=== PATIENT | male | born 1955 | race American Indian/Alaskan Native ===

== ENCOUNTER 2022-05-30 15:50 | Inpatient (IN) | payer MEDICARE, OTHER ==
--- NOTE | 2022-05-30 16:41 | Consultation ---
History of Present Illness Consult date: 05/30/22 History of present illness: [facility] Consult Note # Demographics Consult Type: Acute Stroke Level 1 (0-4.5 hrs) Patient Location: Emergency Room First Name: eron Last Name: adin Date of : 1955 Age: 66 Gender: Male Facility: [facility] Time of Initial Page ( Time): 05/30/2022, 16:31 Time of Return Call ( Time): 05/30/2022, 16:31 # HPI Chief Complaint: dizziness weakness (focal) History: Per ER staff, patient developed dizziness & right-sided weakness while sitting in recliner. Symptoms resolved after 2-3 minutes. Last Known Normal: I have collected independent history specific to time last normal or last known well. We have collaborated with the provider and at this time, we have the most current timeline with the information that is available. 1300 Duration: resolved minutes Possible Thrombolytic candidate: not on warfarin or NOACs no intracranial hemorrhage history no recent major surgery # Scores Time of exam and NIHSS ( Time): 05/30/2022, 16:34 Level of Consciousness 1a: [0] = Alert; keenly responsive LOC Questions 1b: [0] = Answers both questions correctly LOC Commands 1c: [0] = Performs both tasks correctly Best Gaze 2: [0] = Normal Visual 3: [0] = No visual loss Facial Palsy 4: [0] = Normal symmetrical movements Motor Arm Left 5a: [0] = No drift Motor Arm Right 5b: [0] = No drift Motor Leg Left 6a: [0] = No drift Motor Leg Right 6b: [0] = No drift Limb Ataxia 7: [0] = Absent Sensory 8: [0] = Normal Best Language 9: [0] = No aphasia Dysarthria 10: [0] = Normal Extinction and Inattention 11: [0] = No abnormality NIHSS Total: 0 # Exam SBP: 194 DBP: 99 Mental Status: awake alert and oriented x 3 follows commands Language: normal speech # ROS Pulmonary: no shortness of breath Cardiovascular: no chest pain # PMH-FH-SH Social History: non-smoker Medications: No antithrombotics or anticoagulants reported denies Allergies: NKDA # Data Glucose: 120 # Assessment Impression: Transient Ischemic Attack # Plan Thrombolytic/Intervention: NOT IV Thrombolysis or IA Intervention candidate Thrombolytic Exclusion (< 3 hour window): NIHSS = 0 Target Blood Pressure: SBP < 220 Labs: CBC comprehensive metabolic panel ESR hemoglobin A1c lipid panel troponin TSH urine drug screen ua Imaging: (urgency: STAT): CT Head without contrast CT Angiogram Head and CT Angiogram Neck AND call back with results if abnormal Imaging: (urgency: routine): MRI Brain without contrast Diagnostic Test: echo without bubble study Therapy/Evaluation: NPO until swallow evaluation PT/OT evaluation Medication: aspirin 81 mg PLUS clopidogrel (Plavix) 75 mg for 21 days, then monotherapy therafter start statin with goal of LDL < 70 DVT Prophylaxis: SCD chemical DVT prophylaxis Other: If patient has any neurological deterioration please call me back immediately permissive hypertension telemetry monitoring I have discussed my recommendations with the referring provider Disposition: admit # Logistics Telemedicine: Interactive 2 way audio and visual telecommunication technology was utilized during this visit # Demographics First Name: eron Last Name: adin Facility: [facility] Medications and Allergies Allergies Allergy/AdvReac Type Severity Reaction Status Date / Time No Known Allergies Allergy Verified 05/30/22 16:24 Physical Examination - Vital Signs Vital Signs: Vital Signs Pulse Resp BP Pulse Ox 70 19 172/74 99 05/30/22 16:20 05/30/22 16:20 05/30/22 16:20 05/30/22 16:20
--- NOTE | 2022-05-30 17:00 | Cat Scan Report ---
CT BRAIN: 05/30/2022 INDICATION / CLINICAL INFORMATION: Stroke symptoms. COMPARISON: None available. FINDINGS: BRAIN/INTRACRANIAL STRUCTURES: Unenhanced CT images of the brain demonstrate no evidence of acute abn ormality. Ventricles and sulci are prominent in size, consistent with prominent diffuse cerebral atrophy. Extensive chronic white matter hypoattenuation is present throughout the cerebral hemispheric white m atter, consistent with prominent chronic small vessel ischemic change. There is no evidence of acute large vessel territory ischemic injury, hemorrhage, or mass. There are no abnormal extra-axial fluid collections. EXTRACRANIAL STRUCTURES: Unremarkable. IMPRESSION: Extensive chronic changes. No CT evidence of acute abnormality. No evidence of hemorrhage. All CT scans at this location are performed using dose reduction to ALARA by means of automated expos ure control. Signer Name: Abhilash López MD Signed: 05/30/2022 4:56 PM Workstation Name: [id number]
[2022-05-30] MEDS ORDERED: ASPIRIN 325 MG TAB PO ONE (17:13)
--- NOTE | 2022-05-30 17:17 | Emergency Department Report ---
HPI - General Chief Complaint: High BP Time Seen by Provider: 05/30/22 16:36 - HPI HPI: Room 4 The patient is a 58-year-old male present with a chief complaint of right-sided weakness. The patient states that 1330 this afternoon he was sitting in his chair watching television when he noticed he had right upper extremity weakness and numbness. Patient states he tried to communicate with his but had difficulty enunciating/getting the words out. Patient states his symptoms lasted for approximately 2 to 3 minutes before resolving. Patient had his take him to a facility he thought was a stroke center but found out it was urgent care facility so when they were returning home they decided to stop at a fire department. The patient had his blood pressure checked at that time and was found to be hypertensive at 220/110 and was subsequently brought to the ED. Patient currently denies complaints. Patient denies history of hypertension ED Past Medical Hx - Past Medical History Previous Medical History?: No - Surgical History Past Surgical History?: No Additional Surgical History: Right wrist ganglion cyst removal - Family History Family history: no significant - Social History Smoking Status: Former Smoker (None x40 years) Substance Use Type: None (Denies illicit drug use), Alcohol (Glass of wine daily) ED Review of Systems ROS: Stated complaint: POSSIBLE TIA/WEAKNESS/DIZZY Other details as noted in HPI Constitutional: no symptoms reported Eyes: denies: eye pain ENT: denies: throat pain Respiratory: no symptoms reported Cardiovascular: denies: chest pain Endocrine: no symptoms reported Gastrointestinal: denies: abdominal pain Genitourinary: denies: dysuria Musculoskeletal: denies: back pain Neurological: weakness, paresthesias, other (Dysarthria) Physical Exam - Physical Exam Vital Signs: Vital Signs 05/30/22 16:20 Pulse Rate 70 Respiratory 19 Rate Blood Pressure 172/74 [Right] O2 Sat by Pulse 99 Oximetry Physical Exam: GENERAL: The patient is well-developed well-nourished male lying on stretcher not appearing to be in acute distress. [] HEENT: Normocephalic. Atraumatic. Extraocular motions are intact. Patient has moist mucous membranes. NECK: Supple. Trachea midline CHEST/LUNGS: Clear to auscultation. There is no respiratory distress noted. HEART/CARDIOVASCULAR: Regular. There is no tachycardia. There is no gallop rub or murmur. ABDOMEN: Abdomen is soft, nontender. Patient has normal bowel sounds. There is no abdominal distention. SKIN: There is no rash. There is no edema. There is no diaphoresis. NEURO: The patient is awake, alert, and oriented. The patient is cooperative. The patient has no focal neurologic deficits. The patient has normal speech. Cranial nerves II through XII grossly intact. GCS 15. Patient is able to hold either upper extremity at 45 degree angle for 10-second count without drift. Patient is able to hold either lower extremity at 30 degree angle for 5-second count without drift. Normal sensation to light touch equal bilaterally throughout. NIHSS= 0 MUSCULOSKELETAL: There is no evidence of acute injury. ED Course Vital Signs 05/30/22 16:20 Pulse Rate 70 Respiratory 19 Rate Blood Pressure 172/74 [Right] O2 Sat by Pulse 99 Oximetry ED Medical Decision Making - Lab Data Result diagrams: 05/30/22 17:38 05/30/22 17:38 Laboratory Tests 05/30/22 05/30/22 05/30/22 17:38 17:38 17:38 WBC 4.8 RBC 4.91 Hgb 14.7 Hct 43.0 MCV 88 MCH 30 MCHC 34 RDW 13.8 Plt Count 167 Lymph % (Auto) 40.8 H Mcpherson % (Auto) 10.3 H Eos % (Auto) 2.8 Baso % (Auto) 1.0 Lymph # (Auto) 2.0 Mcpherson # (Auto) 0.5 Eos # (Auto) 0.1 Baso # (Auto) 0.0 Seg Neutrophils % 45.1 Seg Neutrophils # 2.2 PT 21.5 H INR 1.64 H Thrombin Time 39.5 H Sodium 135 L Potassium 4.4 Chloride 101.2 Carbon Dioxide 24 Anion Gap 14 BUN 8 L Creatinine 0.9 Estimated GFR > 60 BUN/Creatinine Ratio 9 Glucose 83 Calcium 9.2 AST 18 ALT 20 Alkaline Phosphatase 77 Total Creatine Kinase 107 CK-MB (CK-2) 1.4 CK-MB (CK-2) Rel Index 1.3 Troponin T < 0.010 Total Protein 6.4 Albumin 4.4 Albumin/Globulin Ratio 2.2 - Radiology Data Radiology results: report reviewed (CT head, CTA brain, CTA neck), image reviewed (CT head, CT brain, CTA neck) [facility] [address] [place] [address] Cat Scan Report Signed Patient: SIA GAXIOLA MR#: [id number] : 1955 Acct:[id number] Age/Sex: 66 / M ADM Date: 05/30/22 Loc: ED Attending Dr: Ordering Physician: ANITA NATARAJAN MD Date of Service: 05/30/22 Procedure(s): CT angio head Accession Number(s): [id number] cc: ANITA NATARAJAN MD CTA head with intravenous contrast CLINICAL HISTORY: stroke sx 100ml of [id number] TECHNIQUE: 0.625 mm thick contiguous axial scans were obtained from the skull base to the skull vertex during rapid bolus administration of intravenous contrast material. Multiplanar reconstructions were produced in the coronal and sagittal planes. In addition 3 plane MIP instructions were produced and reviewed for this report. The axial source images and reconstructed images were reviewed for this report. CONTRAST DOSE REPORT: Omnipaque 350: 100 ml administered intravenously. All CT scans at this location are performed using CT dose reduction for ALARA by means of automated exposure control. FINDINGS: Internal carotid arteries dolichoectasia of the supraclinoid segment of the i nternal carotid arteries is noted, right more than left.:Radha, cavernous, ophthalmic and clinoid segments of the ICAs have an otherwise unremarkable appearance. Middle cerebral arteries:Normal and symmetrical M1 segments of the middle cerebral arteries are demonstrated. No abnormalities are seen on evaluation of the insular or opercular branches. Anterior cerebral arteries:Bilaterally symmetrical A1 segments are demonstrated. No abnormalities are seen along the course of the A2 segments or their visualized pericallosal branches. A small anterior communicating artery is demonstrated. Vertebral arteries:Bilaterally symmetrical vertebral arteries are demonstrated. Both vertebral arteries contribute to the basilar artery origin. Basilar artery:Basilar artery has an unremarkable appearance. Posterior cerebral arteries:Bilaterally symmetrical posterior cerebral arteries are identified. small right-sided and large left-sided posterior communicating arteries are demonstrated. [place] of [place]:Not intact. see above. Dural sinuses: Dural sinuses are not well evaluated on this study which was obtained during the early and mid arterial phase. IMPRESSION: 1. 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 2. No indication of intercranial stenosis or large vessel occlusion. Signer Name: Juice Bella MD Signed: 05/30/2022 5:41 PM Workstation Name: [id number] Transcribed By: Dictated By: Juice Bella MD Electronically Authenticated By: Juice Bella MD Signed Date/Time: 05/30/221740 DD/ 35 TD/TT: [facility] [address] [id number] Cat Scan Report Signed Patient: SIA GAXIOLA MR#: [id number] : 1955 Acct:[id number] Age/Sex: 66 / M ADM Date: 05/30/22 Loc: ED Attending Dr: Ordering Physician: ANITA NATARAJAN MD Date of Service: 05/30/22 Procedure(s): CT angio neck Accession Number(s): [id number] cc: ANITA NATARAJAN MD CTA neck without and with intravenous contrast material CLINICAL HISTORY: stroke sx 100ml of [id number] TECHNIQUE: Following acquisition of a timing bolus 0.625 mm thick contiguous axial scans were obtained from aortic arch to the skull base during rapid bolus intravenous contrast infusion. In addition to evaluation of axial source images multiplanar reconstructions were produced and reviewed for this report. 3 plane MIP reconstructions were produced and reviewed. Contrast dose report: Omnipaque 350: 100 ml, administered intravenously All CT examinations performed at this facility utilize modulated dose reduction, iterative reconstruction or weight-based dosing, as appropriate, to obtain a radiation dose which is as low as can reasonably be achieved. FINDINGS: Limitations: Timing of the contrast bolus relative to scan acquisition is suboptimal. This altered and suboptimal evaluation of the abdominal aorta and origins of the great vessels as well as of the proximal common carotid arteries and vertebral arteries. Thoracic aorta: Evaluation is limited as noted above..The origins of the great vessels are not well evaluated on this study Right carotid artery: Mid and distal common carotid artery have an unremarkable appearance. Calcified atherosclerotic plaque is present on the posterior aspect of the carotid bulb. There is no indication of stenosis. Cervical segments of the R ICA have a normal appearance. Left carotid artery: Mid and distal left common carotid artery have an unremarkable appearance. There is no indication of atherosclerotic disease carotid bulb or elsewhere. Cervical segments of the LICA have a normal appearance. Posterior circulation: The V1 segments of the vertebral arteries are poorly demonstrated due to problems with timing of the contrast bolus. Mid and distal V2 segments, V3 segments and V4 segments of the vertebral arteries have an unremarkable appearance. Both vertebral arteries contribute to the basilar artery origin. The degree of stenosis, if any, is determined utilizing NASCET like criteria. In this case there is no indication of hemodynamically significant stenosis at the carotid b ifurcations or elsewhere. Evaluation of the nonvascular soft tissue structures reveal no abnormality. There is no indication of cervical lymphadenopathy. No abnormalities are seen along the course of the airway. Visualized portions of the parotid glands and the submandibular salivary glands have a normal appearance. Thyroid gland has a normal appearance. Evaluation of the lung apices reveals no evidence of lung nodule or infiltrate. Widespread cervical spondylosis is noted. Loss of disc height and anterior and posterior osteophyte formation are present at multiple levels. Widespread uncovertebral arthropathy is observed. Multifocal neuroforaminal stenosis is evident. Central spinal canal remains adequate in size. IMPRESSION: 1. Limited evaluation of the thoracic aorta and origins of the great vessels. 2. No indication of hemodynamically significant stenosis at the carotid bifurcations or elsewhere. Signer Name: Juice Bella MD Signed: 05/30/2022 5:36 PM Workstation Name: [id number] Transcribed By: Dictated By: Juice Bella MD Electronically Authenticated By: Juice Bella MD Signed Date/Time: 05/30/221735 DD/ 172 TD/TT: [address] [address] Cat Scan Report Signed Patient: SIA GAXIOLA MR#: [id number] : 1955 A cct:[id number] Age/Sex: 66 / M ADM Date: 05/30/22 Loc: ED Attending Dr: Ordering Physician: ANITA NATARAJAN MD Date of Service: 05/30/22 Procedure(s): CT head/brain wo con Accession Number(s): [id number] cc: ANITA NATARAJAN MD CT BRAIN: 05/30/2022 INDICATION / CLINICAL INFORMATION: Stroke symptoms. COMPARISON: None available. FINDINGS: BRAIN/INTRACRANIAL STRUCTURES: Unenhanced CT images of the brain demonstrate no evidence of acute abnormality. Ventricles and sulci are prominent in size, consistent with prominent diffuse cerebral atrophy. Extensive chronic white matter hypoattenuation is present throughout the cerebral hemispheric white matter, consistent with prominent chronic small vessel ischemic change. There is no evidence of acute large vessel territory ischemic injury, hemorrhage, or mass. There are no abnormal extra-axial fluid collections. EXTRACRANIAL STRUCTURES: Unremarkable. IMPRESSION: Extensive chronic changes. No CT evidence of acute abnormality. No evidence of hemorrhage. All CT scans at this location are performed using dose reduction to ALARA by means of automated exposure control. Signer Name: Abhilash López MD Signed: 05/30/2022 4:56 PM Workstation Name: [id number] Transcribed By: SHARATH Dictated By: Abhilash López MD Electronically Authenticated By: Abhilash López MD Signed Date/Time: 05/30/221655 DD/ 52 TD/TT: - Differential Diagnosis TIA, CVA Critical care attestation.: If time is entered above; I have spent that time in minutes in the direct care of this critically ill patient, excluding procedure time. ED Disposition Clinical Impression: TIA (transient ischemic attack) Disposition: ADMITTED INPATIENT Is pt being admited?: Yes Does the pt Need Aspirin: Yes Condition: Fair Time of Disposition: 19:00 (Care transferred to hospitalist (Dr. Bernard))
--- NOTE | 2022-05-30 17:40 | Cat Scan Report ---
CTA neck without and with intravenous contrast material CLINICAL HISTORY: stroke sx 100ml of [id number] TECHNIQUE: Following acquisition of a timing bolus 0.625 mm thick contiguous axial scans were obtained from aort ic arch to the skull base during rapid bolus intravenous contrast infusion. In addition to evaluation of axial source images multiplanar reconstructions were produced and reviewed for this report. 3 ishmael ne MIP reconstructions were produced and reviewed. Contrast dose report: Omnipaque 350: 100 ml, administered intravenously All CT examinations performed at this facility utilize modulated dose reduction, iterative reconstruc tion or weight-based dosing, as appropriate, to obtain a radiation dose which is as low as can reason ably be achieved. FINDINGS: Limitations: Timing of the contrast bolus relative to scan acquisition is suboptimal. This altered an d suboptimal evaluation of the abdominal aorta and origins of the great vessels as well as of the pro ximal common carotid arteries and vertebral arteries. Thoracic aorta: Evaluation is limited as noted above..The origins of the great vessels are not well e valuated on this study Right carotid artery: Mid and distal common carotid artery have an unremarkable appearance. Calcified atherosclerotic plaque is present on the posterior aspect of the carotid bulb. There is no indicatio n of stenosis. Cervical segments of the R ICA have a normal appearance. Left carotid artery: Mid and distal left common carotid artery have an unremarkable appearance. There is no indication of atherosclerotic disease carotid bulb or elsewhere. Cervical segments of the LICA have a normal appearance. Posterior circulation: The V1 segments of the vertebral arteries are poorly demonstrated due to probl ems with timing of the contrast bolus. Mid and distal V2 segments, V3 segments and V4 segments of the vertebral arteries have an unremarkable appearance. Both vertebral arteries contribute to the basila r artery origin. The degree of stenosis, if any, is determined utilizing NASCET like criteria. In this case there is no indication of hemodynamically significant stenosis at the carotid bifurcations or elsewhere. Evaluation of the nonvascular soft tissue structures reveal no abnormality. There is no indication of cervical lymphadenopathy. No abnormalities are seen along the course of the airway. Visualized porti ons of the parotid glands and the submandibular salivary glands have a normal appearance. Thyroid gla nd has a normal appearance. Evaluation of the lung apices reveals no evidence of lung nodule or infil trate. Widespread cervical spondylosis is noted. Loss of disc height and anterior and posterior osteophyte f ormation are present at multiple levels. Widespread uncovertebral arthropathy is observed. Multifocal neuroforaminal stenosis is evident. Central spinal canal remains adequate in size. IMPRESSION: 1. Limited evaluation of the thoracic aorta and origins of the great vessels. 2. No indication of hemodynamically significant stenosis at the carotid bifurcations or elsewhere. Signer Name: Juice Bella MD Signed: 05/30/2022 5:36 PM Workstation Name: [email or web address]
--- NOTE | 2022-05-30 17:45 | Cat Scan Report ---
CTA head with intravenous contrast CLINICAL HISTORY: stroke sx 100ml of [id number] TECHNIQUE: 0.625 mm thick contiguous axial scans were obtained from the skull base to the skull vertex during r apid bolus administration of intravenous contrast material. Multiplanar reconstructions were produced in the coronal and sagittal planes. In addition 3 plane MIP instructions were produced and reviewed for this report. The axial source images and reconstructed images were reviewed for this report. CONTRAST DOSE REPORT: Omnipaque 350: 100 ml administered intravenously. All CT scans at this location are performed using CT dose reduction for ALARA by means of automated e xposure control. FINDINGS: Internal carotid arteries dolichoectasia of the supraclinoid segment of the internal carotid arteries is noted, right more than left.:Radha, cavernous, ophthalmic and clinoid segments of the ICAs have an otherwise unremarkable appearance. Middle cerebral arteries:Normal and symmetrical M1 segments of the middle cerebral arteries are demon strated. No abnormalities are seen on evaluation of the insular or opercular branches. Anterior cerebral arteries:Bilaterally symmetrical A1 segments are demonstrated. No abnormalities are seen along the course of the A2 segments or their visualized pericallosal branches. A small anterior communicating artery is demonstrated. Vertebral arteries:Bilaterally symmetrical vertebral arteries are demonstrated. Both vertebral arteri es contribute to the basilar artery origin. Basilar artery:Basilar artery has an unremarkable appearance. Posterior cerebral arteries:Bilaterally symmetrical posterior cerebral arteries are identified. smal l right-sided and large left-sided posterior communicating arteries are demonstrated. [place] of [place]:Not intact. see above. Dural sinuses: Dural sinuses are not well evaluated on this study which was obtained during the early and mid arterial phase. IMPRESSION: 1. 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 2. No indication of intercranial stenosis or large vessel occlusion. Signer Name: Juice Bella MD Signed: 05/30/2022 5:41 PM Workstation Name: [id number]
[2022-05-30 18:01] LABS: Eosinophils # (Auto) 0.1 K/mm3 (0.0-0.4); Eosinophils % (Auto) 2.8 % (0.0-4.3); Hemoglobin 14.7 gm/dl (11.8-15.2); Lymphocytes % (Auto) 40.8 % (13.4-35.0); Mean Corpuscular HGB Conc 34 % (32-34); Mean Corpuscular Volume 88 fl (84-94); Monocytes # (Auto) 0.5 K/mm3 (0.0-0.8); Monocytes % (Auto) 10.3 % (0.0-7.3); Platelet Count 167 K/mm3 (140-440); Red Blood Count 4.91 M/mm3 (3.65-5.03); Red Cell Distribution Width 13.8 % (13.2-15.2)
[2022-05-30 18:18] LABS: INR 1.64 (0.87-1.13)
[2022-05-30 18:21] LABS: Creatine Kinase MB 1.4 ng/mL (0.0-4.0)
[2022-05-30 18:22] LABS: Alanine Aminotransferase 20 units/L (7-56); Albumin 4.4 g/dL (3.9-5); BUN/Creatinine Ratio 9; Blood Urea Nitrogen 8 mg/dL (9-20); Calcium 9.2 mg/dL (8.4-10.2); Hemolysis Index 18; Thrombin Time 39.5 Sec. (15.1-19.6)
[2022-05-30] MEDS ORDERED: ACETAMINOPHEN 325 MG TAB PO PRN ×2 (19:03→22:40)
[2022-05-30] MEDS ORDERED: MORPHINE 2 MG/1 ML INJ IV PRN ×2 (19:03→22:40)
[2022-05-30] MEDS ORDERED: ONDANSETRON 4 MG/2 ML INJ IV PRN ×2 (19:03→22:40)
[2022-05-30 19:15] LABS: Partial Thromboplastin Time 98.6 Sec. (24.2-36.6)
[2022-05-30 21:29] LABS: Color,Urine Colorless (Yellow)
[2022-05-30 21:51] LABS: Mucus,Urine FEW /HPF
[2022-05-30] MEDS ORDERED: ALBUTEROL 2.5 MG/3 ML NEBU IH PRN (22:40)
[2022-05-30] MEDS ORDERED: MORPHINE 4 MG/1 ML INJ IV PRN (22:40)
--- NOTE | 2022-05-30 22:49 | History and Physical Report ---
History of Present Illness Date of examination: 05/30/22 Date of admission: 05/30/22 19:03 Chief complaint: Right-sided weakness High blood pressure History of present illness: 58-year-old male present with a chief complaint of right-sided weakness. The patient states that 1330 this afternoon he was sitting in his chair watching television when he noticed he had right upper extremity weakness and numbness. Patient states he tried to communicate with his but had difficulty enunciating/getting the words out. Patient states his symptoms lasted for approximately 2 to 3 minutes before resolving. Patient had his take him to a facility he thought was a stroke center but found out it was urgent care facility so when they were returning home they decided to stop at a fire department. The patient had his blood pressure checked at that time and was f ound to be hypertensive at 220/110 and was subsequently brought to the ED. Patient currently denies complaints. Patient denies history of hypertension In the emergency room initial CT scan of the head shows extensive chronic changes. No CT evidence of acute abnormality. No evidence of hemorrhage. Subsequently patient was seen and evaluated by telemetry neurology's were going to admit the patient we will put the patient on TIA pathway Past History Past Medical History: hypertension Past Surgical History: Other (Right wrist ganglion cyst removal) Social history: smoking, alcohol abuse Family history: hypertension Medications and Allergies Allergies Allergy/AdvReac Type Severity Reaction Status Date / Time No Known Allergies Allergy Verified 05/30/22 16:24 Active Meds: Active Medications Acetaminophen (Acetaminophen 325 Mg Tab) 650 mg PO Q4H PRN PRN Reason: Pain MILD(1-3)/Fever >100.5/PENN Acetaminophen (Acetaminophen 325 Mg Tab) 650 mg PO Q4H PRN PRN Reason: Pain MILD(1-3)/Fever >100.5/PENN Albuterol (Albuterol 2.5 Mg/3 Ml Nebu) 2.5 mg IH Q4HRT PRN PRN Reason: Shortness Of Breath Albuterol/Ipratropium (Ipratropium/Albuterol Sulfate 3 Ml Ampul.Neb) 1 ampul IH Q6HRT BRENDA Famotidine (Famotidine 20 Mg Tab) 20 mg PO BID BRENDA Morphine Sulfate (Morphine 2 Mg/1 Ml Inj) 2 mg IV Q4H PRN PRN Reason: Pain, Moderate (4-6) Ondansetron HCl (Ondansetron 4 Mg/2 Ml Inj) 4 mg IV Q8H PRN PRN Reason: Nausea And Vomiting Ondansetron HCl (Ondansetron 4 Mg/2 Ml Inj) 4 mg IV Q8H PRN PRN Reason: Nausea And Vomiting Sodium Chloride (Sodium Chloride 0.9% 10 Ml Flush Syringe) 10 ml IV BID BRENDA Stop: 06/09/22 23:59 Sodium Chloride (Sodium Chloride 0.9% 10 Ml Flush Syringe) 10 ml IV PRN PRN PRN Reason: LINE FLUSH Sodium Chloride (Sodium Chloride 0.9% 10 Ml Flush Syringe) 10 ml IV BID BRENDA Sodium Chloride (Sodium Chloride 0.9% 10 Ml Flush Syringe) 10 ml IV PRN PRN PRN Reason: LINE FLUSH Sodium Chloride (Sodium Chloride 0.9% 10 Ml Flush Syringe) 10 ml INJ PRN PRN PRN Reason: LINE FLUSH Review of Systems All systems: negative Constitutional: other (Right upper extremity weakness and numbness.difficulty enunciating/getting the words out. ) Exam - Constitutional Vitals: Temp Pulse Resp BP Pulse Ox 71 15 171/95 95 05/30/22 19:16 05/30/22 19:16 05/30/22 19:16 05/30/22 22:06 General appearance: Present: no acute distress, well-nourished - EENT Eyes: Present: PERRL ENT: hearing intact, clear oral mucosa - Neck Neck: Present: supple, normal ROM - Respiratory Respiratory effort: normal Respiratory: bilateral: CTA - Cardiovascular Heart Sounds: Present: S1 & S2. Absent: rub, click - Extremities Extremities: pulses symmetrical, No edema Peripheral Pulses: within normal limits - Abdominal General gastrointestinal: Present: soft, non-tender, non-distended, normal bowel sounds Male genitourinary: Present: normal - Integumentary Integumentary: Present: clear, warm, dry - Musculoskeletal Musculoskeletal: gait normal, strength equal bilaterally - Psychiatric Psychiatric: appropriate mood/affect, intact judgment & insight - Neurologic Neurologic: CNII-XII intact, moves all extremities HEART Score - HEART Score Troponin: Troponin T < 0.010 ng/mL (0.00-0.029) 05/30/22 17:38 Results - Labs CBC & Chem 7: 05/30/22 17:38 09/22/22 17:38 Labs: Laboratory Last Values WBC 4.8 K/mm3 (4.5-11.0) 05/30/22 17:38 RBC 4.91 M/mm3 (3.65-5.03) 05/30/22 17:38 Hgb 14.7 gm/dl (11.8-15.2) 05/30/22 17:38 Hct 43.0 % (35.5-45.6) 05/30/22 17:38 MCV 88 fl (84-94) 05/30/22 17:38 MCH 30 pg (28-32) 05/30/22 17:38 MCHC 34 % (32-34) 05/30/22 17:38 RDW 13.8 % (13.2-15.2) 05/30/22 17:38 Plt Count 167 K/mm3 (140-440) 05/30/22 17:38 Lymph % (Auto) 40.8 % (13.4-35.0) H 05/30/22 17:38 [place] % (Auto) 10.3 % (0.0-7.3) H 05/30/22 17:38 Eos % (Auto) 2.8 % (0.0-4.3) 05/30/22 17:38 Baso % (Auto) 1.0 % (0.0-1.8) 05/30/22 17:38 Lymph # (Auto) 2.0 K/mm3 (1.2-5.4) 05/30/22 17:38 [place] # (Auto) 0.5 K/mm3 (0.0-0.8) 05/30/22 17:38 Eos # (Auto) 0.1 K/mm3 (0.0-0.4) 05/30/22 17:38 Baso # (Auto) 0.0 K/mm3 (0.0-0.1) 05/30/22 17:38 Seg Neutrophils % 45.1 % (40.0-70.0) 05/30/22 17:38 Seg Neutrophils # 2.2 K/mm3 (1.8-7.7) 05/30/22 17:38 PT 21.5 Sec. (12.2-14.9) H 05/30/22 17:38 INR 1.64 (0.87-1.13) H 05/30/22 17:38 APTT 98.6 Sec. (24.2-36.6) H* 05/30/22 17:38 Thrombin Time 39.5 Sec. (15.1-19.6) H 05/30/22 17:38 Sodium 135 mmol/L (137-145) L 05/30/22 17:38 Potassium 4.4 mmol/L (3.6-5.0) 05/30/22 17:38 Chloride 101.2 mmol/L (98-107) 05/30/22 17:38 Carbon Dioxide 24 mmol/L (22-30) 05/30/22 17:38 Anion Gap 14 mmol/L 05/30/22 17:38 BUN 8 mg/dL (9-20) L 05/30/22 17:38 Creatinine 0.9 mg/dL (0.8-1.3) 05/30/22 17:38 Estimated GFR > 60 ml/min 05/30/22 17:38 BUN/Creatinine Ratio 9 % 05/30/22 17:38 Glucose 83 mg/dL (75-100) 05/30/22 17:38 Calcium 9.2 mg/dL (8.4-10.2) 05/30/22 17:38 Total Bilirubin 0.30 mg/dL (0.1-1.2) 05/30/22 17:38 AST 18 units/L (5-40) 05/30/22 17:38 ALT 20 units/L (7-56) 05/30/22 17:38 Alkaline Phosphatase 77 units/L (35-129) 05/30/22 17:38 Total Creatine Kinase 107 units/L (55-170) 05/30/22 17:38 CK-MB (CK-2) 1.4 ng/mL (0.0-4.0) 05/30/22 17:38 CK-MB (CK-2) Rel Index 1.3 (0-4) 05/30/22 17:38 Troponin T < 0.010 ng/mL (0.00-0.029) 05/30/22 17:38 Total Protein 6.4 g/dL (6.3-8.2) 05/30/22 17:38 Albumin 4.4 g/dL (3.9-5) 05/30/22 17:38 Albumin/Globulin Ratio 2.2 % 05/30/22 17:38 Urine Color Colorless (Yellow) 05/30/22 19:00 Urine Turbidity Clear (Clear) 05/30/22 19:00 Specific [place] (Man) 1.010 (1.003-1.030) 05/30/22 19:00 Ur Protein (Man) Negative mg/dL (Negative) 05/30/22 19:00 Ur Ketones (Man) Negative (Negative) 05/30/22 19:00 Ur Nitrite (Man) Negative (Negative) 05/30/22 19:00 Urine Bilirubin (Man) Negative (Negative) 05/30/22 19:00 Leukocyte Esterase (Man) Negative (Negative) 05/30/22 19:00 Urine WBC (Auto) 9.0 /HPF (0.0-6.0) H 05/30/22 19:00 Urine RBC (Auto) 1.0 /HPF (0.0-6.0) 05/30/22 19:00 U Epithel Cells (Auto) < 1.0 /HPF (0-13.0) 05/30/22 19:00 Urine RBC (Manual) Trace (Negative) 05/30/22 19:00 Urine Mucus Few /HPF 05/30/22 19:00 - Imaging and Cardiology CT Scan - head: report reviewed Assessment and Plan VTE prophylaxis?: Mechanical Plan of care discussed with patient/family: Yes - Patient Problems (1) TIA (transient ischemic attack) Current Visit: Yes Status: Acute Plan to address problem: Admit to the medical telemetry. Aspirin 325 mg p.o. daily. Lipitor 40 mg p.o. daily. PT OT speech evaluation. MRI of the brain. MRA of the brain and neck with and without contrast. Neurology evaluation. Echocardiogram (2) Hypertension Current Visit: Yes Status: Acute Plan to address problem: Labetalol 10 mg IV every 6 hours as needed. We continue the home medication (3) DVT prophylaxis Current Visit: Yes Status: Acute Plan to address problem: SCD for DVT prophylaxis. Pepcid 20 mg p.o. twice daily for GI prophylaxis. Patient is a full code
[2022-05-30 22:53] LABS: Amphetamine Screen,Urine PRESUMPTIVE NEGATIVE; Benzodiazepines Screen,Urine PRESUMPTIVE NEGATIVE; Cannabinoid Screen,Urine PRESUMPTIVE NEGATIVE; Cocaine Screen,Urine PRESUMPTIVE NEGATIVE; Methadone Screen,Urine PRESUMPTIVE NEGATIVE; Opiate Screen,Urine PRESUMPTIVE NEGATIVE
--- NOTE | 2022-05-31 08:43 | Progress Note ---
Assessment and Plan Assessment and plan: --TIA (transient ischemic attack) Admit to the medical telemetry. Aspirin 325 mg p.o. daily. Lipitor 40 mg p.o. daily. 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 We continue the home medication --Dyslipidemia; Low-cholesterol diet, statin --Morbid obesity; BMI 41.9 Diet modification, exercise as tolerated and weight reduction When you are medically stable -DVT prophylaxis SCD for DVT prophylaxis. Pepcid 20 mg p.o. twice daily for GI prophylaxis. --full code Follow neuro work-up Follow neurology evaluation recommendations Closely monitor the patient and adjust the management as needed Plan of care reviewed with the patient and his nurse Advance care planning; 30 minutes And discussed in detail with the patient, patient's condition, tests and reports I discussed with him his prognosis, and discussed the treatment plan and consultation recommendations Has questions answered all of them, also discussed briefly the discharge plannin ita and he is stable Preventive health care counseling; 30 minutes Strongly advised to comply with medications diet follow-up visits Advised exercise as tolerated and weight reduction when medically stable Advised to see primary care physician and get age-related screenings per guidelines Patient verbalized understanding Behavioral health counseling/obesity 10 minutes History Interval history: I have seen and examined the patient at the bedside Patient's chart and medications reviewed Neuro work-up is in progress Patient feels slightly better Vital signs noted Hospitalist Physical - Constitutional Vitals: Temp Pulse Resp BP Pulse Ox 98.3 F 62 18 151/85 97 05/31/22 07:46 05/31/22 07:46 05/31/22 07:46 05/31/22 07:46 05/31/22 07:46 General appearance: Present: no acute distress, well-nourished - EENT Eyes: Present: PERRL, EOM intact - Neck Neck: Present: supple, normal ROM - Respiratory Respiratory effort: normal Respiratory: bilateral: diminished, negative: rales, rhonchi, wheezing - Cardiovascular Rhythm: regular Heart Sounds: Present: S1 & S2 - Extremities Extremities: no ischemia, No edema - Abdominal General gastrointestinal: soft, non-tender, non-distended, normal bowel sounds - Integumentary Integumentary: Present: clear, warm - Psychiatric Psychiatric: appropriate mood/affect, cooperative - Neurologic Neurologic: moves all extremities HEART Score - HEART Score Troponin: Troponin T < 0.010 ng/mL (0.00-0.029) 05/30/22 17:38 Results - Labs CBC & Chem 7: 05/31/22 08:13 05/31/22 08:13 Labs: Laboratory Last Values WBC 4.8 K/mm3 (4.5-11.0) 05/30/22 17:38 RBC 4.91 M/mm3 (3.65-5.03) 05/30/22 17:38 Hgb 14.7 gm/dl (11.8-15.2) 05/30/22 17:38 Hct 43.0 % (35.5-45.6) 05/30/22 17:38 MCV 88 fl (84-94) 05/30/22 17:38 MCH 30 pg (28-32) 05/30/22 17:38 MCHC 34 % (32-34) 05/30/22 17:38 RDW 13.8 % (13.2-15.2) 05/30/22 17:38 Plt Count 167 K/mm3 (140-440) 05/30/22 17:38 Lymph % (Auto) 40.8 % (13.4-35.0) H 05/30/22 17:38 [place] % (Auto) 10.3 % (0.0-7.3) H 05/30/22 17:38 Eos % (Auto) 2.8 % (0.0-4.3) 05/30/22 17:38 Baso % (Auto) 1.0 % (0.0-1.8) 05/30/22 17:38 Lymph # (Auto) 2.0 K/mm3 (1.2-5.4) 05/30/22 17:38 [place] # (Auto) 0.5 K/mm3 (0.0-0.8) 05/30/22 17:38 Eos # (Auto) 0.1 K/mm3 (0.0-0.4) 05/30/22 17:38 Baso # (Auto) 0.0 K/mm3 (0.0-0.1) 05/30/22 17:38 Seg Neutrophils % 45.1 % (40.0-70.0) 05/30/22 17:38 Seg Neutrophils # 2.2 K/mm3 (1.8-7.7) 05/30/22 17:38 PT 21.5 Sec. (12.2-14.9) H 05/30/22 17:38 INR 1.64 (0.87-1.13) H 05/30/22 17:38 APTT 98.6 Sec. (24.2-36.6) H* 05/30/22 17:38 Thrombin Time 39.5 Sec. (15.1-19.6) H 05/30/22 17:38 Sodium 135 mmol/L (137-145) L 05/30/22 17:38 Potassium 4.4 mmol/L (3.6-5.0) 05/30/22 17:38 Chloride 101.2 mmol/L (98-107) 05/30/22 17:38 Carbon Dioxide 24 mmol/L (22-30) 05/30/22 17:38 Anion Gap 14 mmol/L 05/30/22 17:38 BUN 8 mg/dL (9-20) L 05/30/22 17:38 Creatinine 0.9 mg/dL (0.8-1.3) 05/30/22 17:38 Estimated GFR > 60 ml/min 05/30/22 17:38 BUN/Creatinine Ratio 9 % 05/30/22 17:38 Glucose 83 mg/dL (75-100) 05/30/22 17:38 Calcium 9.2 mg/dL (8.4-10.2) 05/30/22 17:38 Total Bilirubin 0.30 mg/dL (0.1-1.2) 05/30/22 17:38 AST 18 units/L (5-40) 05/30/22 17:38 ALT 20 units/L (7-56) 05/30/22 17:38 Alkaline Phosphatase 77 units/L (35-129) 05/30/22 17:38 Total Creatine Kinase 107 units/L (55-170) 05/30/22 17:38 CK-MB (CK-2) 1.4 ng/mL (0.0-4.0) 05/30/22 17:38 CK-MB (CK-2) Rel Index 1.3 (0-4) 05/30/22 17:38 Troponin T < 0.010 ng/mL (0.00-0.029) 05/30/22 17:38 Total Protein 6.4 g/dL (6.3-8.2) 05/30/22 17:38 Albumin 4.4 g/dL (3.9-5) 05/30/22 17:38 Albumin/Globulin Ratio 2.2 % 05/30/22 17:38 Urine Color Colorless (Yellow) 05/30/22 19:00 Urine Turbidity Clear (Clear) 05/30/22 19:00 Specific [place] (Man) 1.010 (1.003-1.030) 05/30/22 19:00 Ur Protein (Man) Negative mg/dL (Negative) 05/30/22 19:00 Ur Ketones (Man) Negative (Negative) 05/30/22 19:00 Ur Nitrite (Man) Negative (Negative) 05/30/22 19:00 Urine Bilirubin (Man) Negative (Negative) 05/30/22 19:00 Leukocyte Esterase (Man) Negative (Negative) 05/30/22 19:00 Urine WBC (Auto) 9.0 /HPF (0.0-6.0) H 05/30/22 19:00 Urine RBC (Auto) 1.0 /HPF (0.0-6.0) 05/30/22 19:00 U Epithel Cells (Auto) < 1.0 /HPF (0-13.0) 05/30/22 19:00 Urine RBC (Manual) Trace (Negative) 05/30/22 19:00 Urine Mucus Few /HPF 05/30/22 19:00 Urine Opiates Screen Presumptive negative 05/30/22 19:00 Urine Methadone Screen Presumptive negative 05/30/22 19:00 Ur Barbiturates Screen Presumptive negative 05/30/22 19:00 Ur Phencyclidine Scrn Presumptive negative 05/30/22 19:00 Ur Amphetamines Screen Presumptive negative 05/30/22 19:00 U Benzodiazepines Scrn Presumptive negative 05/30/22 19:00 Urine Cocaine Screen Presumptive negative 05/30/22 19:00 U Marijuana (THC) Screen Presumptive negative 05/30/22 19:00 Drugs of Abuse Note Disclamer 05/30/22 19:00 Cardenas/IV: Voiding Method Toilet Active Medications - Current Medications Current Medications: Generic Name Dose Route Start Last Admin Trade Name Freq PRN Reason Stop Dose Admin Acetaminophen 650 mg 05/30/22 22:40 Acetaminophen 325 Mg Tab PO Q4H PRN Pain MILD(1-3)/Fever >100.5/PENN Albuterol 2.5 mg 05/30/22 22:40 Albuterol 2.5 Mg/3 Ml Nebu IH Q4HRT PRN Shortness Of Breath Albuterol/Ipratropium 1 ampul 05/31/22 02:00 Ipratropium/Albuterol Sulfate 3 Ml Ampul.Neb IH Q6HRT [facility] Aspirin 325 mg 05/31/22 10:00 Aspirin 325 Mg Tab PO QDAY [facility] Atorvastatin Calcium 40 mg 05/31/22 22:00 Atorvastatin 40 Mg Tab PO QHS [facility] Famotidine 20 mg 05/31/22 10:00 Famotidine 20 Mg Tab PO BID [facility] Labetalol HCl 10 mg 05/30/22 22:40 Labetalol 20 Mg/4 Ml Inj IV Q5MIN PRN to maintain SBP < 180 Morphine Sulfate 2 mg 05/30/22 22:40 Morphine 2 Mg/1 Ml Inj IV Q4H PRN Pain, Moderate (4-6) Morphine Sulfate 4 mg 05/30/22 22:40 Morphine 4 Mg/1 Ml Inj IV Q4H PRN Pain , Severe (7-10) Ondansetron HCl 4 mg 05/30/22 22:40 Ondansetron 4 Mg/2 Ml Inj IV Q8H PRN Nausea And Vomiting Sodium Chloride 10 ml 05/31/22 10:00 Sodium Chloride 0.9% 10 Ml Flush Syringe IV BID BRENDA Sodium Chloride 10 ml 05/30/22 22:40 Sodium Chloride 0.9% 10 Ml Flush Syringe IV PRN PRN LINE FLUSH
--- NOTE | 2022-05-31 09:38 | Consultation ---
History of Present Illness Consult date: 05/31/22 Reason for Consult: tia Chief complaint: slurred speech History of present illness: 66 yo right-handed male with htn, remote hx of tobacco, not on any medications, presents with dizziness, slurred speech, difficulty getting the words out, and right-sided weakness that lasted for 2-3 minutes. Unknowingly went to urgent care initially and then stopped off at a fire department (BP 210/110). Currently he feels he is at his baseline. Past History Past Medical History: hypertension Past Surgical History: Other (Right wrist ganglion cyst removal) Social history: smoking, alcohol abuse Family history: hypertension Medications and Allergies Allergies Allergy/AdvReac Type Severity Reaction Status Date / Time No Known Allergies Allergy Verified 05/31/22 17:28 Home Medications Medication Instructions Recorded Confirmed Last Taken Type Aspirin EC [Halfprin EC] 81 mg PO QDAY 05/31/22 05/31/22 Unknown History Garlic 500 mg PO QDAY 05/31/22 05/31/22 Unknown History Multivit-Min/Folic/Vit K/Lycop 1 each PO QDAY 05/31/22 05/31/22 Unknown History [Men's 50 Plus Multivitamin Tab] Active Meds: Active Medications Acetaminophen (Acetaminophen 325 Mg Tab) 650 mg PO Q4H PRN PRN Reason: Pain MILD(1-3)/Fever >100.5/[place] Albuterol (Albuterol 2.5 Mg/3 Ml Nebu) 2.5 mg IH Q4HRT PRN PRN Reason: Shortness Of Breath Albuterol/Ipratropium (Ipratropium/Albuterol Sulfate 3 Ml Ampul.Neb) 1 ampul IH Q6HRT BRENDA Aspirin (Aspirin 325 Mg Tab) 325 mg PO QDAY [facility] Atorvastatin Calcium (Atorvastatin 40 Mg Tab) 40 mg PO QHS [facility] Famotidine (Famotidine 20 Mg Tab) 20 mg PO BID BRENDA Labetalol HCl (Labetalol 20 Mg/4 Ml Inj) 10 mg IV Q5MIN PRN PRN Reason: to maintain SBP < 180 Morphine Sulfate (Morphine 2 Mg/1 Ml Inj) 2 mg IV Q4H PRN PRN Reason: Pain, Moderate (4-6) Morphine Sulfate (Morphine 4 Mg/1 Ml Inj) 4 mg IV Q4H PRN PRN Reason: Pain , Severe (7-10) Ondansetron HCl (Ondansetron 4 Mg/2 Ml Inj) 4 mg IV Q8H PRN PRN Reason: Nausea And Vomiting Sodium Chloride (Sodium Chloride 0.9% 10 Ml Flush Syringe) 10 ml IV BID BRENDA Sodium Chloride (Sodium Chloride 0.9% 10 Ml Flush Syringe) 10 ml IV PRN PRN PRN Reason: LINE FLUSH Review of Systems All systems: negative (as per hpi;) Physical Examination - Vital Signs Vital Signs: Vital Signs Pulse Resp BP Pulse Ox 70 19 172/74 99 05/30/22 16:20 05/30/22 16:20 05/30/22 16:20 05/30/22 16:20 - Physical Exam Narrative exam: Gen: nad, well-nourished; Head: normocephalic; Eyes: no gaze deviation; no ptosis; ENT: normal vocalization; CVS: warm and well-perfused; Pulm: normal work of breathing; GI: appears non-distended; Ext: no cyanosis appreciated at distal extremities; Skin: no acute rash at distal extremities; Heme: no pathologic ecchymosis appreciated at distal extremities; Neuro: alert, oriented to name, age, month, year, surroundings, no dysarthria, no aphasia, CN 2 - PERRL, visual stevens grossly intact, CN 3, 4, 6 - EOMI, CN 5 - facial sensation symmetric to light touch, CN 7 - facial movement symmetric, CN 8 - hearing grossly intact, CN 9, 10 - uvula midline, CN 11 symmetric shoulder movement, CN 12 - tongue midline; Motor - at least 4+/5 at all exts; Sensory - light touch symmetric, Cerebellar - fnf /hts intact, Gait - deferred secondary to fall risk; NIHSS (1a.) Level of Consciousness:0 (1b.) LOC Questions:0 (1c.) LOC Commands:0 (2.) Best Gaze:0 (3.) Visual:0 (4.) Facial Palsy:0 (5a.) Motor Arm, Left:0 (5b.) Motor Arm, Right:0 (6a.) Motor Leg, Left:0 (6b.) Motor Leg, Right:0 (7.) Limb Ataxia:0 (8.) Sensory:0 (9.) Best Language:0 (10.) Dysarthria: (11.) Extinction and Inattention:0 NIHSS Total Score:0 Results - Laboratory Findings CBC and BMP: 05/31/22 08:13 05/31/22 08:13 Abnormal Lab Findings: Abnormal Labs 05/30/22 05/30/22 05/30/22 17:38 17:38 17:38 Lymph % (Auto) 40.8 H [place] % (Auto) 10.3 H PT 21.5 H INR 1.64 H APTT 98.6 H* Thrombin Time 39.5 H Sodium 135 L BUN 8 L Urine WBC (Auto) 05/30/22 19:00 Lymph % (Auto) [place] % (Auto) PT INR APTT Thrombin Time Sodium BUN Urine WBC (Auto) 9.0 H Assessment and Plan 66 yo right-handed male with htn, alcohol abuse, remote hx of tobacco, not on any medications, presents with dizziness, slurred speech, difficulty getting the words out, and right-sided weakness that lasted for 2-3 minutes. 1. TIA / Acute Ischemic Stroke -ASA 81 mg PO qday if no contraindications; MRI Brain w/ w/o contrast, TTEcho, confirm LDL/HgbA1C/TSH/Covid-19/UDS, CONFIRM PT/PTT (discussed with RN at bedside); telemetry, NIHSS q4 hours; SBP goal 160- 200 mmHg and DBP 80-100 mmHg for 24 hours. Statin therapy for a goal LDL of 70, when patient passes swallow evaluation. PT/OT/ST/Swallow evaluation. Long-term risk-factor modification, including a strict diet/exercise regimen for secondary stroke prophylaxis. Stroke education prior to discharge. Followup with Stroke Neurology in 4-6 weeks. 2. Hypertension - goal SBP 160-200 mmHg and DBP 80-100 mmHg for 24 hours. 3. Alcohol Abuse / Withdrawal - per primary team. 4. Coagulopathy - abnormal pt/ptt noted; discussed with RN to confirm with the hospitalist that this is not a lab error. David Rodriguez MD Neurology [id number]
[2022-05-31 10:07] LABS: Basophils % (Auto) 0.7 % (0.0-1.8); Eosinophils # (Auto) 0.1 K/mm3 (0.0-0.4); Eosinophils % (Auto) 2.3 % (0.0-4.3); Hematocrit 42.2 % (35.5-45.6); Hemoglobin 13.9 gm/dl (11.8-15.2); Lymphocytes # (Auto) 1.1 K/mm3 (1.2-5.4); Lymphocytes % (Auto) 30.2 % (13.4-35.0); Mean Corpuscular HGB Conc 33 % (32-34); Mean Corpuscular Volume 87 fl (84-94); Monocytes # (Auto) 0.4 K/mm3 (0.0-0.8); Monocytes % (Auto) 11.5 % (0.0-7.3); Platelet Count 171 K/mm3 (140-440); Red Blood Count 4.83 M/mm3 (3.65-5.03)
--- NOTE | 2022-05-31 10:07 | Magnetic Resonance Report ---
MR brain wo con INDICATION / CLINICAL INFORMATION: 66 years Male; stroke. TECHNIQUE: Multiplanar, multisequence MR images of the brain were obtained. COMPARISON: None available. FINDINGS: BRAIN / INTRACRANIAL CONTENTS: No acute hemorrhage, mass effect, midline shift, hydrocephalus, or acu te, large territorial infarct. No chronic infarct or atrophy. There are moderate, confluent areas of increased signal intensity on FLAIR imaging in the white matter of the cerebral hemispheres. These ar e nonspecific findings and may be related to microangiopathy (hypertension, diabetes, atherosclerosis ), given the patient's age. Mild pontine disease noted. CRANIOCERVICAL JUNCTION: No significant abnormality. VASCULAR FLOW-VOIDS: Dolichoectasia suggested in the distal internal carotid arteries-right greater t kyees left. Similar findings described on CTA of the head from 05/30/2022. ORBITS: No significant abnormality of visualized orbits. SINUSES / MASTOIDS: Mild to moderate mucosal thickening in the ethmoids. ADDITIONAL FINDINGS: None. IMPRESSION: 1. No focal mass, hemorrhage, hydrocephalus, or acute ischemia. Signer Name: Gurjit Sepulveda MD, III Signed: 05/31/2022 10:03 AM Workstation Name: [id number]
--- NOTE | 2022-05-31 10:14 | Magnetic Resonance Report ---
MR MRA/MRV head wo con INDICATION / CLINICAL INFORMATION: 66 years Male; stroke. TECHNIQUE: 3-D time of flight. NASCET type criteria used to evaluate stenoses. COMPARISON: CTA head-05/30/2022 FINDINGS: INTERNAL CAROTID ARTERIES: Mild ectasia of the distal internal carotid arteries again noted. VERTEBROBASILAR SYSTEM: No significant narrowing appreciated. DISTAL BRANCHES: Distal branches of the anterior, middle, and posterior cerebral arteries are fairly symmetric in appearance and number. ANEURYSM: None identified. There is an infundibulum associated with the small posterior communicating artery on the right. IMPRESSION: 1. 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 2. Otherwise, no signs of significant stenosis appreciated. Signer Name: Gurjit Sepulveda MD, III Signed: 05/31/2022 10:10 AM Workstation Name: [id number]
[2022-05-31 10:32] LABS: BUN/Creatinine Ratio 9; Blood Urea Nitrogen 8 mg/dL (9-20); Calcium 8.8 mg/dL (8.4-10.2); Chol/HDL Ratio 4.52 %; HDL Cholesterol 48 mg/dL (40-59); Hemolysis Index 6; LDL Cholesterol,Direct 142 mg/dL (50-130)
--- NOTE | 2022-05-31 10:33 | Electrocardiograph Report ---
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
[2022-05-31] MEDS: ASPIRIN 325 MG TAB PO SCH (10:53)
[2022-05-31] MEDS: FAMOTIDINE 20 MG TAB PO SCH ×2 (10:53→21:06)
[2022-05-31] MEDS: IPRATROPIUM/ALBUTEROL SULFATE 3 ML AMPUL.NEB IH SCH ×2 (12:31→12:32)
[2022-06-01 09:12] VITALS: BP 144/75
[2022-06-01] MEDS: FAMOTIDINE 20 MG TAB PO SCH (09:32)
[2022-06-01] MEDS: ASPIRIN 325 MG TAB PO SCH (09:32)
[2022-06-01] MEDS ORDERED: SODIUM CHLORIDE 0.9% 1000 ML 1,000 ML ONE (11:54)
[2022-06-01 12:31] LABS: INR 0.88 (0.87-1.13)
[2022-06-01 12:32] LABS: Partial Thromboplastin Time 29.7 Sec. (24.2-36.6)
--- NOTE | 2022-06-01 12:37 | Discharge Summary ---
Providers - Providers Date of Admission: 05/30/22 19:03 Date of discharge: 06/01/22 Attending physician: CATHRYN FREEMAN 05/30/22 22:40 Consult to Physician [CONS] Routine Comment: Consulting Provider: SCOTTY MCLEOD Physician Instructions: Reason For Exam: tia Occupational Therapy Evaluate and Treat [CONS] Routine Comment: Reason For Exam: Neuro deficits Physical Therapy Evaluation and Treat [CONS] Routine Comment: Reason For Exam: Neuro deficits Primary care physician: ALPA DELGADO Hospitalization Condition: Fair Hospital course: --Right-sided weakness/acute CVA; Neuro work-up is negative/acute CVA ruled out CT head without contrast extensive chronic changes no CT evidence of acute abnormality no evidence of hemorrhage MRI brain no focal mass hemorrhage hydrocephalus or acute ischemia MRA brain; mild focal ectasia of the distal internal carotid arteries bilaterally right greater than left otherwise no significant stenosis appreciated CTA head ;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 daily. Lipitor 40 mg p.o. daily. --Hypertension/moderate control Continue current antihypertensives labetalol 10 mg IV every 6 hours as needed. We continue the home medication --Dyslipidemia; Low-cholesterol diet, statin --Morbid obesity; BMI 41.9 Diet modification, exercise as tolerated and weight reduction When you are medically stable -DVT prophylaxis SCD for DVT prophylaxis. Pepcid 20 mg p.o. twice daily for GI prophylaxis. --full code Follow neuro work-up Follow neurology evaluation recommendations Closely monitor the patient and adjust the management as needed Plan of care reviewed with the patient and his nurse Advance care planning; 30 minutes And discussed in detail with the patient, patient's condition, tests and reports I discussed with him his prognosis, and discussed the treatment plan and consultation recommendations Has questions answered all of them, also discussed briefly the discharge planning and he is stable Preventive health care counseling; 30 minutes Strongly advised to comply with medications diet follow-up visits Advised exercise as tolerated and weight reduction when medically stable Advised to see primary care physician and get age-related screenings per guidelines Patient verbalized understanding Behavioral health counseling/obesity 10 minutes Disposition: 01 HOME / SELF CARE / HOMELESS Final Discharge Diagnosis (Prints w/discharge instructions): Acute CVA/right- sided weakness present on admission/acute CVA ruled out. TIA transient ischemic attack. Hypertension. Dyslipidemia. Morbid obesity Time spent for discharge: 35 min Exam - Constitutional Vitals: Temp Pulse Resp BP Pulse Ox 97.8 F 51 L 18 144/75 95 06/01/22 07:39 06/01/22 07:39 06/01/22 07:39 06/01/22 07:39 06/01/22 08:10 Plan Activity: no restrictions Diet: other (Cardiac diet) Additional Instructions: If you have worsening symptoms contact MD or go to the nearest emergency room as needed. Advised to see private neurologist in 1 to 2 weeks. Advised to see primary care physician in 1 to 2 weeks. Advised diet modification, exercise as tolerated and weight reduction when you are medically stable Follow up with: ALPA DELGADO MD [Primary Care Provider] - 7 Days EZEQUIEL CASTRO MD [Staff Physician] - 14 Days Prescriptions: AtorvaSTATin [Lipitor] 40 mg PO QHS #30 tablet Famotidine [Pepcid] 20 mg PO BID #20 tablet
== END 2022-06-01 14:31 | disposition home or self-care (01) | DRG 69 ==
LOC: ED 15:50 → 4A 19:03
PROVIDERS: ADMIT Hospitalist; ATTEND Internal Medicine
DX: G45.9 Transient cerebral ischemic attack, unspecified (principal); Z68.41 Body mass index [BMI] 40.0-44.9, adult; F10.139 Alcohol abuse with withdrawal, unspecified; D68.9 Coagulation defect, unspecified; E66.01 Morbid (severe) obesity due to excess calories; Z87.891 Personal history of nicotine dependence; E78.5 Hyperlipidemia, unspecified; Z79.82 Long term (current) use of aspirin; Z82.49 Family history of ischemic heart disease and other diseases of the circulatory system; Y90.9 Presence of alcohol in blood, level not specified
CPT/HCPCS: 36415; 70450; 70496; 70498; 70544; 70551; 80048; 80053; 80061; 80307; 81001; 82550; 82553; 82962; 84484; 85025; 85610; 85670; 85730; 87086; 93005; 93306; 94760; 99285; G0378; C8929; Q9967